=== PATIENT | male | born 1955 | race Caucasian/White ===

== ENCOUNTER 2020-06-03 14:53 | Outpatient (RCR) | payer MEDICARE, SELFPAY ==
[2017-03-04 23:19] VITALS: BMI 27.9
== END 2020-06-03 23:59 ==
LOC: IMMUN 14:53
PROVIDERS: PCP Internal Medicine; Visit Provider Family Medicine
DX: Z23 Encounter for immunization (principal)
CPT/HCPCS: 0011A; 0012A; 91301

== ENCOUNTER 2020-11-30 14:00 | Outpatient (RCR) | payer MEDICARE, OTHER, SELFPAY ==
--- NOTE | 2020-11-17 07:03 | HP.PTEVAL ---
Patient's Visit Information CHRYSTAL BRANDT is a 65 year old M referred to Physical Therapy by JEOVANY BARNES with a diagnosis of Spastic pelvic floor syndrome. Date of Evaluation: 11/09/20 Physical Therapist: Jean Paul Skinner DPT - Visit Plan Frequency: 2x /Week Duration: 4 Weeks Plan: Start with lumbar ROM, abdominal stretching, Hip stretching, REIL. Add in core stability exercises with focus on not over activation pelvic floor musculature. - Subjective Pt. is here today for his spastic pelvic floor syndrome. He reports having increased symptoms for ~2 months now. He reports having increased L anterior groin pain, abdominal pain and low back pain for the say amount of time. Pt. denies N/T in either LE or groin area. He reports no changes in B/B. Increases pain: transitional movements ie sit to stand, rolling in bed. Decreases symptoms: OTC meds, resting. Symptoms have worsened over the past few months with last week being the worst. He reports some pain today, but not as severe. He denies leg pain. He does report symptoms come and go and will have a zapping' type pain when it gets back. He has not tried any exercises at this point in time. Pt. is hopeful to reduce symptoms in order to get back to all recreational activities and taking care of his son how has some disabilities. - Pain lower abdomen Pain Intensity (Out of 10): 2 Pain Intensity Range: 0, 4 Lumbar spine Pain Intensity (Out of 10): 2 Pain Intensity Range: 0, 5 L groin pain Pain Intensity (Out of 10): 3 Pain Intensity Range: 0, N/A - Objective POSTURE: Pt. has increased flexed posture with more sway back like posture. Pt. has normal pelvic positioning and normal iliac crest heights. PALPATION: Pt. has some tenderness along lumbar spine at L5/S1 with hypomobility noted. Pt. has no groin pain with palpation. And reports no pelvic floor pain with palpation. NEURO: pt. has normal sensation and normal DTR of BLEs. ROM: Lumbar spine: flexion min loss increase NW in abdomen and low back, extension mod loss mild reduction in symptoms, SB nil loss BE, rotation min loss NE bilat. Pt. has normal hip ROM bilat without increase in symptoms. MMT: Pt. has 5/5 strength throughout BLEs, but has poor+ core strength. GAIT: Pt. has normal gait pattern. Pt. has slight decrease in hip extension with gait with increased lateral sway during R stance phase. STAIRS: normal with reciprocal pattern. - Special Tests Lumbar Standing: Flexion - Mechanical Response: No effect Lumbar Standing: Flexion - Symptoms During Testing: Increases Lumbar Standing: Flexion - Symptoms After Testing: No worse Lumbar Standing: Extension - Mechanical Response: No effect Lumbar Standing: Extension - Symptoms During Testing: Decreases Lumbar Standing: Extension - Symptoms After Testing: Better Lumbar Standing: Right Side Glides - Mechanical Response: No effect Lumbar Standing: Right Side [place] - Symptoms During Testing: No effect Lumbar Standing: Right Side [place] - Symptoms After Testing: No effect Lumbar Standing: Left Side [place] - Mechanical Response: No effect Lumbar Standing: Left Side [place] - Symptoms During Testing: No effect Lumbar Standing: Left Side [place] - Symptoms After Testing: No effect Lumbar Lying: Flexion - Mechanical Response: No effect Lumbar Lying: Flexion - Symptoms During Testing: No effect Lumbar Lying: Flexion - Symptoms After Testing: No effect Lumbar Lying: Extension - Mechanical Response: No effect Lumbar Lying: Extension - Symptoms During Testing: Decreases Lumbar Lying: Extension - Symptoms After Testing: Better R Hip Scour: Negative R Hip Quadrant - Intraarticular Pathology: Negative R Hip RAD - Intraarticular Pathology: Negative R Hip FADDIR - Labrum: Negative L Hip Scour: Negative L Hip Quadrant - Intraarticular Pathology: Negative L Hip RAD - Intraarticular Pathology: Negative L Hip FADDIR - Labrum: Negative L Hip Impingement Provocation - Labrum: Negative - Balance/Special Test Scores Oswestry Low Back Score: 20 - Goals Goal 1:: LTG: Pt. to be I with HEP. Goal Time Frame: 4-6 Weeks Goal 2:: STG: Pt. to have decreased pain in groin, lumbar spine and abdomen during rising from sitting positions to 0-2/10 pain Goal Time Frame: 2 Weeks Goal 3:: LTG: pt. to have no pain in abdomen, groin or lumbar spine with all recreational and household activities. Goal Time Frame: 2-4 Weeks Goal 4:: LTG: Pt. to have increased lumbar ROM to to full with out increase in symptoms. Goal Time Frame: 4-6 Weeks Goal 5:: STG: Pt. to be educated and complete pelvic floor relaxation techniques. Goal Time Frame: 2 Weeks Goal 6:: LTG: Pt. to complete core stability exercises without over activation of pelvic floor musculature. Goal Time Frame: 4-6 Weeks - Rehabilitation Potential Physical Therapy Diagnosis: Pt. has signs and symptoms consistent with spastic pelvic floor syndrome. He has overall tightness throughout bilateral hips, lumbar spine and abdominals. He has pain that radiates to lumbar spine, groin region, and abdomen. He would benefit from PT to increase overall ROM, relaxation techniques, and stability to reduce over activation of pelvic floor. Rehabilitation Potential: Good - Anticipated Interventions Patient/Client Instruction: Educate patient on: Condition, Plan of Care, Risk Factors, Benefits of Fitness Program For the Purpose of:: To improve decision making, To facilitate caregiver knowledge, To improve self management, To prevent re-injury, To improve ability to perform tasks related to life management Therapeutic Exercise to Include: Strength training, Power training, Endurance training, Body mechanics, Postural training, Flexibilty training For the Purpose of:: To decrease pain, To increase ROM, To improve nutrient delivery to tissue, To increase oxygenation perfusion, To improve muscle performance and motor function, To improve ability of physical actions for home/community/work/leisure, To improve gait and locomotor functions, To improve health of tissue, To decrease soft tissue restriction Manual Therapy Techniques to Include: Mobilization, Passive ROM, Soft tissue mobilization For the Purpose of:: To decrease pain, To decrease swelling/inflammation, To increase ROM, To improve nutrient delivery to tissue, To increase flexibility/ROM Thank you for the opportunity to evaluate your patient. For Medicare and Medicare HMO plans, please review the plan of care and approve it. It will need to be FAXED BACK to us at [phone] for Medicare purposes. For Medicare only, by signing this I certify the plan of care. Please let me know if there are questions or concerns regarding this plan of care. Physician Signature: Date:
--- NOTE | 2021-03-16 13:42 | HP.PT.NRP ---
CHRYSTAL BRANDT was seen in my office for initial evaluation on 11/09/20. The following Plan of Care was established for this patient: Initial Frequency: 2x /Week Initial Duration: 4 Weeks Patient/Client Instruction: Educate patient on: Condition, Plan of Care, Risk Factors, Benefits of Fitness Program For the Purpose of:: To improve decision making, To facilitate caregiver knowledge, To improve self management, To prevent re-injury, To improve ability to perform tasks related to life management Therapeutic Exercise to Include: Strength training, Power training, Endurance training, Body mechanics, Postural training, Flexibilty training For the Purpose of:: To decrease pain, To increase ROM, To improve nutrient delivery to tissue, To increase oxygenation perfusion, To improve muscle performance and motor function, To improve ability of physical actions for home/community/work/leisure, To improve gait and locomotor functions, To improve health of tissue, To decrease soft tissue restriction Manual Therapy Techniques to Include: Mobilization, Passive ROM, Soft tissue mobilization For the Purpose of:: To decrease pain, To decrease swelling/inflammation, To increase ROM, To improve nutrient delivery to tissue, To increase flexibility/ROM This patient was last seen in our office 11/30/20. Pertinent comments regarding their Physical therapy will appear below: Pt. is seen for PT for his spastic pelvic floor syndrome. At his last visit her reported being 95% better overall. He was to trial exercises on his own at our last visit. Pt. has not been seen in several months and will be DC from PT at this point in time. At this point I will be discontinuing this patient from physical therapy. I would be happy to see this patient again in the future if found appropriate by the physician. Thank you! Jean Paul Skinner, DPT Balance/Gait/Functional tests - Balance/Special Test Scores Oswestry Low Back Score: 0
== END 2020-11-30 19:00 | disposition home or self-care (01) ==
LOC: PT 14:00
PROVIDERS: PCP Internal Medicine
DX: R19.8 Other specified symptoms and signs involving the digestive system and abdomen (principal)
CPT/HCPCS: 97110; 97161

== ENCOUNTER 2022-12-30 10:30 | Outpatient (RCR) | payer MEDICARE, OTHER, SELFPAY ==
--- NOTE | 2022-11-30 16:58 | HP.PTEVAL_ITS ---
Patient's Visit Information Visit Information Visit Information: CHRYSTAL BRANDT is a 67 year old M referred to Physical Therapy by Dr. Matthew Cuevas MD with a diagnosis of B knee OA. Date of Evaluation: 11/30/22 Physical Therapist: Jean Paul Skinner DPT Visit Plan Frequency: 2x /Week Duration: 6 Weeks Plan: Start with tibial femoral joint mobs into extension, add in HS and hip flexor stretching. May use US initially to calm symptoms. Progress quad, glute Medius and HS strengthening. Progress to HEP and gym exercises as tolerated. Subjective Subjective: Pt. is here today for his initial evaluation with diagnosis of B knee OA. Pt. reports having increased pain in his B knees for a few months now. He reports initially having B knee pain after mulching, resulting in increased swelling. Pt. reports increased B medial knee pain. He has started taking prednisone for it and will begin meloxicam after. Pt. denies that his knee give out on him, but has been having increased sharp stabbing medial knee pain at times. He reports symptoms are intermittent and inconsistent. Pt. does some gym exercises including biking, and leg press. He is hopeful to reduce symptoms in order to get back to all recreational activities without limitations. Pain R knee: Pain Intensity (Out of 10): 2 Pain Intensity Range: 0 and 7 Comment: medial joint line L knee: Pain Intensity (Out of 10): 2 Pain Intensity Range: 0 and 7 Comment: medial joint line Objective Objective: POSTURE: Pt. has bilateral knee varus in stance, R worse than L. Pt. does lack TKE on R side as well. PALPATION: Pt. has increased tenderness along medial patellar pole. Pt. has pain at medial joint line as well. This is consistent in B knees. Pt. has no lateral joint line pain and no popliteal pain noted in either LE. NEURO: normal bilaterally. ROM: R knee: 0-15-121deg. L knee: 0-2-131deg. Pt. has increased R knee stiffness and unable to achieve TKE with over pressure on R side. Pt. has more of a leather feel with end range knee extension on L side. Pt. has very tight B HS. MMT: Pt. has descent strength in B distal LEs, 5-/5 B quads, 4+/5 B HS, but has 4/5 strength throughout B hip extension and abd. GAIT: pt. ambulates with decreased R knee extension, resulting in stiff RLE. Pt. has antalgic pattern during R stance phase. Pt. did have marked increase in B knee pain with pivoting on either LE during turning. STAIRS: pt. has pain with both ascending and descending, Bilaterally (L worse than R today), descending worse than ascending. Balance/Special Test Scores Lower Extremity Functional Score: 48 Goals Goal 1:: LTG: pt. to be I with HEP. Goal Time Frame: 4-6 Weeks Goal 2:: LTG: Pt. to have increased BLE strength to 5/5 throughout without increase in symptoms. Goal 3:: STG: Pt. to be able sleep throughout the night without increase in symptoms. Goal Time Frame: 4-6 Weeks Goal 4:: LTG: pt. to be able to walk unlimited distances without increase in symptoms and normal gait pattern. Goal Time Frame: 4-6 Weeks Goal 5:: LTG: pt. to have increased B knee ROM to allow for full knee extension and increased B HS length to at least 75deg in 90/90 positioning. Goal Time Frame: 4-6 Weeks Rehabilitation Potential Physical Therapy Diagnosis: Pt. has signs and symptoms consistent with B knee p ain. Pt. has marked hypomoblity in B knees, tight HS and hip flexors as well as pain along medial boarder of patellas. Due to patients increased varus knee positioning it feels like his medial patella is grinding on the medial aspects of his patellar groove. Pt. would benefit from PT to work on ROM and strengthening of his BLEs. Rehabilitation Potential: Good Anticipated Interventions Patient/Client Instruction: Educate patient on: Condition, Plan of Care, Risk Factors and Benefits of Fitness Program For the Purpose of:: To improve self management, To prevent re-injury, To improve ability to perform tasks related to life management and To improve tolerance to ADL's Therapeutic Exercise to Include: Strength training, Power training, Endurance training, Postural training, Flexibilty training, Gait and locomotor training, Passive ROM, Active ROM and Dynamic Lumbar Stabilization For the Purpose of:: To decrease pain, To increase ROM, To improve nutrient delivery to tissue, To increase oxygenation perfusion, To improve muscle performance and motor function, To improve ability to perform ADL's, To increase tolerance to activity/condition/position, To improve gait and locomotor functions, To improve health of tissue, To decrease soft tissue restriction and To increase flexibility/ROM Manual Therapy Techniques to Include: Mobilization and Passive ROM For the Purpose of:: To decrease pain, To increase ROM, To improve nutrient delivery to tissue and To increase oxygenation perfusion Ultrasound (thermal/non thermal): Yes For the Purpose of:: To decrease pain Text: Thank you for the opportunity to evaluate your patient. For Medicare and Medicare HMO plans, please review the plan of care and approve it. It will need to be FAXED BACK to us at [phone] for Medicare purposes. For Medicare only, by signing this I certify the plan of care. Please let me know if there are questions or concerns regarding this plan of care. Physician Signature: Date:
--- NOTE | 2022-12-30 11:00 | HP.PTREVAL_ITS ---
Re-Evaluation Intro: Dr. Matthew Cuevas MD, It has been my pleasure to treat CHRYSTAL BRANDT over the last 10 visits for B knee OA. Please see the progress note below for an update on the physical therapy plan of care! Subjective Subjective: Pt. reports overall better than he was, but had a few bad days. Pt. reports no pain currently, but more stiffness. Objective Objective/Function: ROM: R knee 0-8-122deg, L knee 0-2-128deg. Pt. continues to have tightness in B HS and hip flexors, but less so. MMT: RLE: knee: ext 4+/5, flexion 4+/5; L knee: ext 5-/5, flexion 5-/5. Hip 5/5 throughout BLEs. GAIT: Pt. continues to have increased B knee varus with is more noticiable in stance phase of gait. R worse than L. STAIRS: Pt. is able to complete with reciprocal pattern, pain with loading phase of LLE with ascending. Descending pain/stiffness with both loading phases. Plan Plan Plan: Pt. is overall better than he was. He is still having some soreness and stiffness, but feels comfortable with his HEP in the gym to complete on his own at this point in time. Pt. will attempt to complete I for 2-3 weeks. If he has some issues during this time he is to contact me to bring him back in. IF he has no further issues I will DC back to physician at that point in time. Balance/Gait/Functional tests Balance/Special Test Scores Lower Extremity Functional Score: 50 Goals Goals Goal 1:: LTG: pt. to be I with HEP. Goal Time Frame: 4-6 Weeks Goal Progress: Goal Met Goal 2:: LTG: Pt. to have increased BLE strength to 5/5 throughout without increase in symptoms. Goal Progress: Progressing Goal 3:: STG: Pt. to be able sleep throughout the night without increase in symptoms. Goal Time Frame: 4-6 Weeks Goal Progress: Progressing Goal 4:: LTG: pt. to be able to walk unlimited distances without increase in sy mptoms and normal gait pattern. Goal Time Frame: 4-6 Weeks Goal Progress: Progressing Goal 5:: LTG: pt. to have increased B knee ROM to allow for full knee extension and increased B HS length to at least 75deg in 90/90 positioning. Goal Time Frame: 4-6 Weeks Goal Progress: Progressing Anticipated Interventions Anticipated Interventions Patient/Client Instruction: Educate patient on: Condition, Plan of Care, Risk Factors and Benefits of Fitness Program For the Purpose of:: To improve self management, To prevent re-injury, To improve ability to perform tasks related to life management and To improve tolerance to ADL's Therapeutic Exercise to Include: Strength training, Power training, Endurance training, Postural training, Flexibilty training, Gait and locomotor training, Passive ROM, Active ROM and Dynamic Lumbar Stabilization For the Purpose of:: To decrease pain, To increase ROM, To improve nutrient delivery to tissue, To increase oxygenation perfusion, To improve muscle performance and motor function, To improve ability to perform ADL's, To increase tolerance to activity/condition/position, To improve gait and locomotor functions, To improve health of tissue, To decrease soft tissue restriction and To increase flexibility/ROM Manual Therapy Techniques to Include: Mobilization and Passive ROM For the Purpose of:: To decrease pain, To increase ROM, To improve nutrient delivery to tissue and To increase oxygenation perfusion Ultrasound (thermal/non thermal): Yes For the Purpose of:: To decrease pain Re-Evaluation Ending Re-evaluation ending: Please do not hesitate to contact me at [phone] by phone or if you have questions or concerns regarding this new plan of care! Sincerely, Jean Paul Skinner DPT
== END 2022-12-30 19:00 | disposition home or self-care (01) ==
LOC: PT 10:30
PROVIDERS: PCP Internal Medicine; Referring Provider Specialist; Visit Provider Specialist
DX: M17.0 Bilateral primary osteoarthritis of knee (principal)
CPT/HCPCS: 97035; 97110; 97161; 97164